=== PATIENT | female | born 1995 | race African-American/Black ===

== ENCOUNTER 2020-05-17 08:46 | Emergency (ER) | payer MEDICAID ==
[2020-05-17] MEDS ORDERED: Metoclopramide 10 MG/10 ML UDCUP ONE (08:51)
[2020-05-17] MEDS ORDERED: Ketorolac Tromethamine 30 MG/ML VIAL ONE (08:51)
[2020-05-17] MEDS ORDERED: Metoclopramide HCl 10 MG/2 ML VIAL ONE (08:52)
[2020-05-17] MEDS ORDERED: Acetaminophen 500 MG TAB ONE ×3 (09:17→09:19)
[2020-05-17] MEDS ORDERED: diphenhydrAMINE 50 MG/ML VIAL ONE (09:17)
[2020-05-17] MEDS ORDERED: methylPREDNISolone Sod Succ/PF 125 MG/2 ML VIAL ONE (09:51)
== END 2020-05-17 09:55 | disposition home or self-care (01) ==
LOC: ERS 08:46
DX: G43.909 Migraine, unspecified, not intractable, without status migrainosus (principal)
CPT/HCPCS: 96365; 96375; J1200; J1885; J2765; J2930